=== PATIENT | male | born 1960 | race Caucasian/White ===

== ENCOUNTER 2022-03-06 21:45 | Emergency (ER) | payer MEDICAID, SELFPAY ==
[2022-03-06 21:47] VITALS: BP 152/96; PULSE 103; RESP 18; TEMP 36.6; O2SAT 97; BMI 35.4
--- NOTE | 2022-03-07 00:49 | PC.NURSE ---
pt states he needs to go home and will come back tomorrow
[2022-03-07 00:50] VITALS: BP 152/96; PULSE 100; RESP 18; TEMP 36.6; O2SAT 97
== END 2022-03-07 00:51 | disposition left against medical advice (07) ==
PROVIDERS: Emergency Provider Emergency Medicine
DX: Z53.21 Procedure and treatment not carried out due to patient leaving prior to being seen by health care provider (principal)

== ENCOUNTER 2023-04-04 11:13 | Emergency (ER) | payer SELFPAY ==
[2023-04-04] VITALS (8 sets, daily range): BP systolic 115–134; BP diastolic 77–89; PULSE 98–111; RESP 20–33; TEMP 36.3–37; O2SAT 83–97; BMI 32.5
--- NOTE | 2023-04-04 11:13 | ECG_ITS ---
APPROVED REPORT Exam: Resting ECG HR:107 bpm ECG Measurements Heart Rate 107 AXES SC 141 P 83 QRSd 94 QRS 77 QT 324 T 78 QTc 387 Conclusion SINUS TACHYCARDIA INCOMPLETE RIGHT BUNDLE BRANCH BLOCK [90+ ms QRS DURATION, TERMINAL R IN V1/V2, 40+ ms S IN I/aVL/V4/V5/V6] MODERATE ST DEPRESSION [0.05+ mV ST DEPRESSION] ABNORMAL ECG UNCONFIRMED REPORT Electronically signed by : Alexander Vincent MD 04/05/2023 21:02:32
--- NOTE | 2023-04-04 11:21 | PC.NURSE ---
Dr. Gilmore at bedside
--- NOTE | 2023-04-04 11:27 | XR_ITS ---
FINAL REPORT CLINICAL HISTORY: Shortness of breath COMPARISON: None FINDINGS: A single portable view of the chest was obtained. The heart size and pulmonary vascularity are within normal limits. The mediastinum is within normal limits. No acute pulmonary abnormality is identified. The bony thorax is intact. IMPRESSION: No active cardiopulmonary disease. Reviewed, Interpreted and Dictated by Sai Ponce III, MD Transcribed by Pema Sarkar Authenticated and [facility]
[2023-04-04 11:36] LABS: Basophils # 0.1 K/mm3 (0-0.2); Basophils % 0.3 % (0.1-2.0); Eosinophils # 0.3 K/mm3 (0.0-0.4); Eosinophils % 1.5 % (0.1-12.0); Hemoglobin 15.6 g/dL (14.1-18.0); Lymphocytes # 1.1 K/mm3 (0.7-4.5); Lymphocytes % 6.5 % (10-50); Mean Corpuscular HGB Conc 32.4 g/dL (31.8-35.4); Mean Corpuscular Hemoglobin 27.5 pg (27.0-31.2); Mean Corpuscular Volume 84.7 fl (80-94); Mean Platelet Volume 7.1 fl (7.4-10.4); Monocytes # 0.8 K/mm3 (0.1-1.0); Monocytes % 4.5 % (1.7-9.3); Neutrophils # 15.3 K/mm3 (1.8-7.8); Neutrophils % 87.2 % (37.0-80.0); Platelet Count 313 K/mm3 (142-424); Red Blood Count 5.67 M/mm3 (4.60-6.20); Red Cell Distribution Width 13.6 % (11.5-17.5); White Blood Count 17.5 K/mm3 (4.8-10.8)
[2023-04-04 11:39] LABS: MANUAL DIFFERENTIAL MANUAL DIFFERENTIAL (MANUAL DIFF)
[2023-04-04 11:52] LABS: Alanine Aminotransferase 27 U/L (12-78); Albumin Level 4.1 g/dl (3.5-5.0); Albumin/Globulin Ratio 1.5 (1.1-1.8); Alkaline Phosphatase 107 U/L (38-126); Anion Gap 9.2 mEq/L (5-15); Aspartate Amino Transferase 29 U/L (17-59); Bilirubin,Total 0.4 mg/dl (0.2-1.3); Blood Urea Nitrogen 40 mg/dl (9-20); Calcium 9.3 mg/dl (8.4-10.2); Carbon Dioxide 33 mmol/L (22.0-30.0); Chloride 103 mmol/L (98-107); Creatinine Clearance Estimated 108 mL/min (50-200); Eosinophils % 1 % (0-3); Estimated Glomerular Filt Rate 76 ml/min (>60); GFR (African American) 92 ML/MIN (>60); Globulin 2.8 g/dL (1.3-3.2); Glucose 147 mg/dl (74-100); Lipase 78 U/L (23-300); Lymphocytes % 7 % (10-50); Monocytes % 5 % (2-9); Neutrophils % 87 % (42-76); Platelet Estimate Normal; Potassium 4.2 mmoL/L (3.5-5.1); RBC Morphology Normal; Sodium 141 mmol/L (136-145); Total Cells Counted 100; Total Protein,Serum 6.9 g/dl (6.3-8.2)
[2023-04-04 11:54] LABS: Ethyl Alcohol < 10 mg/dl (0-10)
--- NOTE | 2023-04-04 11:59 | PC.NURSE ---
rad at bedside for cxr
--- NOTE | 2023-04-04 12:03 | HMH.EDGENADL ---
Discharge Plan Disposition Patient Disposition: Home, Self-Care Prescriptions Prescriptions: New azithromycin 250 mg tablet 250 mg PO DAILY 4 Days Qty: 4 0RF Rx Instructions: start on day 2 of therapy (day after ED visit) albuterol sulfate 90 mcg/actuation HFA aerosol inhaler 4 inh inhalation Q4H PRN (Reason: shortness of breath or wheezing) Qty: 8.5 0RF Rx Instructions: 4 puffs every 4 hours for 48 hours then as needed for shortness of breath or wheezing following amoxicillin-pot clavulanate 875-125 mg tablet 1 tab PO BID 10 Days Qty: 20 0RF Referrals Follow up/Referrals: Provider,Referral, MD [Primary Care Provider] - See instructions Activity Restrictions/Add. Instructions Additional Instructions/Restrictions: Return with any persistent pulse oximeter readings below 88% after you get your home pulse oximeter as we discussed. Return with any increasing shortness of breath or other concerns. Clinical Impressions Clinical Impression: Atypical chest pain, Nausea & vomiting, Polysubstance abuse, Interstitial pneumonia Discharge ED Provider: Kacey Gilmore General Adult HPI General Chief complaint: Chest Pain Stated complaint: Chest Pain, N/V Time Seen by Provider: 04/04/23 11:19 Mode of Arrival: Ambulatory Source of Information: Patient Limitations: No Limitations Description of Symptoms (Recalled from ER Triage Doc. by RN): pt began having right sided chest pain this morning upon waking up, pt states it feels like heart burn and he has had some nausea and neck pain History of Present Illness HPI narrative: 62-year-old male here with multiple complaints. States he has been regularly smoking marijuana and meth most recently yesterday evening and states that he has had some chest discomfort today and some nausea and vomiting. States that pain is currently the right side of his chest no significant dyspnea or exertional component diaphoresis etc. He denies any fevers but has had a chronic mild cough. States that it does burn and feels like it may be reflux related. No significant abdominal pain or diarrhea or blood in the vomit or stool. He denies any other significant medical problems. Related Data Previous Rx's Medication Instructions Recorded albuterol sulfate 90 mcg/actuation 4 inh inhalation Q4H PRN shortness 04/04/23 aerosol inhaler of breath or wheezing #8.5 grams amoxicillin 875 mg-potassium 1 tab PO BID 10 days #20 tabs 04/04/23 clavulanate 125 mg tablet azithromycin 250 mg tablet 250 mg PO DAILY 4 days #4 tabs 04/04/23 Allergies Allergy/AdvReac Type Severity Reaction Status Date / Time No Known Allergies Allergy Verified 04/04/23 11:19 [facility] Disclaimer: The information contained in this section may have been updated after the patient was seen, as this information can be updated by other users. Social History Smoking Status: Current every day smoker alcohol intake: never current occupational status: other Travel in the last 8 weeks: None ROS Obtained: Yes All systems reviewed & no additional complaints except as documented Physical Exam General General appearance: appears intoxicated Respiratory Respiratory exam: Present normal lung sounds bilaterally Cardiovascular Cardiovascular exam: Present regular rate; Absent tachycardia Neurological Exam Neurological exam: Present alert and oriented X3 Medical Decision Making Alexandr Inquiry Pt receiving controlled substance: No Vital Signs: 04/04/23 11:14 04/04/23 11:21 04/04/23 11:30 Temperature 97.4 F L Temperature Source Oral Pulse Rate 102 H 111 H Pulse Rate [Right Radial] 102 H Respiratory Rate 20 33 H Blood Pressure 118/78 Blood Pressure [Right Arm] 133/89 Blood Pressure Mean Blood Pressure Mean [Right Arm] 103 02 Sat by Pulse Oximetry 95 87 L Oxygen Delivery Method Room Air Room Air 04/04/23 12:00 04/04/23 12:30 04/04/23 13:00 Temperature Temperat
[2023-04-04 12:07] LABS: Troponin I < 0.01 ng/ml (0.00-0.034)
--- NOTE | 2023-04-04 12:58 | PC.NURSE ---
pt was in the 80's on his oxygen saturation levels, placed patient on 2 L nasal cannula. er md aware
--- NOTE | 2023-04-04 13:02 | CT_ITS ---
FINAL REPORT CLINICAL HISTORY: unexplained hypoxia with tachycardia FINDINGS: Thin section axial CT images of the chest were obtained with contrast. 3D reformatted images were also obtained. This study was performed with techniques to keep radiation doses as low as reasonably achievable (ALARA). Individualized dose reduction techniques using automated exposure control or adjustment of mA and/or kV according to the patient''s size were employed. Motion artifact is identified on many of the images. The lower lobe vessels are obscured by motion. There is no evidence of pulmonary embolism. There is no evidence of thoracic aortic aneurysm or dissection. There is diffuse esophageal wall thickening. Air and fluid is seen in the esophagus, may represent reflux with inflammatory change. There is no evidence of mediastinal or hilar mass or adenopathy. There are ground-glass opacities in the right middle lobe, lingula, and both lower lobes, may represent edema, pneumonia, or alveolitis. Limited images of the upper abdomen are unremarkable. IMPRESSION: No evidence of pulmonary embolism. Findings may represent reflux with inflammatory change. Ground-glass opacities as detailed above, may represent edema, pneumonia, or alveolitis. Reviewed, Interpreted and Dictated by Sai Ponce III, MD Transcribed by Nicole Hanks Authenticated and [facility]
--- NOTE | 2023-04-04 14:10 | PC.NURSE ---
at bedside reviewing CT scan results.
[2023-04-04 15:49] LABS: Troponin I < 0.01 ng/ml (0.00-0.034)
== END 2023-04-04 15:04 | disposition home or self-care (01) ==
PROVIDERS: Emergency Provider Student in an Organized Health Care Education/Training Program
DX: R07.89 Other chest pain (principal); R11.2 Nausea with vomiting, unspecified; J18.9 Pneumonia, unspecified organism; F15.10 Other stimulant abuse, uncomplicated; F12.10 Cannabis abuse, uncomplicated; F17.200 Nicotine dependence, unspecified, uncomplicated; R00.0 Tachycardia, unspecified
CPT/HCPCS: 71045; 71275; 80053; 83690; 84484; 85007; 85025; 93005; 96361; 96374; 96375; 99285; J2405; Q9967